=== PATIENT | female | born 1985 | race African-American/Black ===

== ENCOUNTER → 2017-02-18 | Outpatient (CLI) | payer BC | END | disposition home or self-care (01) | LOC: US 10:01 | PROVIDERS: ATTEND Internal Medicine | DX: D25.9 Leiomyoma of uterus, unspecified (principal); N83.201 Unspecified ovarian cyst, right side; R10.9 Unspecified abdominal pain; R93.8 Abnormal findings on diagnostic imaging of other specified body structures | CPT/HCPCS: 76830; 76856 ==